=== PATIENT | female | born 1980 | race Caucasian/White ===

== ENCOUNTER → 2022-08-27 | Outpatient (CLI) | payer OTHER ==
[~2022-08-27] MED LIST: CYAN250010 PO; CYCL5TAB PO; DOCU-143 PO; HYDR-3729 PO; IBUP-1773 PO; MULT-39 PO; SIME80TA16 PO; ZINC50TA11 PO
--- NOTE | 2022-08-27 16:04 | Diagnostic Imaging Report ---
EXAMINATION: Left lower extremity MRI without contrast, 08/27/2022. TECHNIQUE: Multiplanar, multisequence [id number] MRI of the left lower extremity was accomplished. INDICATION: Chronic left hip pain. FINDINGS: There is focal T2 hyperintensity overlying the left greater trochanter. A small partial tear of the gluteus medius and minimus tendinous insertion at the greater trochanter is noted without retraction. The remaining visualized tendons including bilateral hamstrings tendon origins and the visualized iliopsoas musculature and tendons are intact. There is no acute osseous abnormality. Hips bilaterally are symmetric and intact. Visualized intrapelvic structures are unremarkable. Mild degenerative changes incidentally noted in the lumbar spine. Mild edema overlies the right greater trochanter but not as pronounced as on the left side. High signal along the superior labrum could be normal for patient with a tear difficult to exclude on this noncontrast examination. IMPRESSION: 1. Possible bilateral greater trochanteric bursitis, left worse than right, with a muscular strain in the left gluteus medius muscle also noted. A small partial tear of the distal gluteus minimus and medius tendons at the greater trochanter also noted without retraction. 2. High signal along the superior labrum could be normal for patient with a tear difficult to exclude on this noncontrast examination. Dictated by: Dictated on workstation # [id number]
== END ==
LOC: RAD 14:35
PROVIDERS: ATTEND Nurse Practitioner Family
DX: S76.012A Strain of muscle, fascia and tendon of left hip, initial encounter (principal); X58.XXXA Exposure to other specified factors, initial encounter
CPT/HCPCS: 73721

== ENCOUNTER → 2023-02-16 | Outpatient (CLI) | payer OTHER ==
--- NOTE | 2023-02-16 16:09 | Diagnostic Imaging Report ---
PROCEDURE: MRI lumbar spine. TECHNIQUE: Multiplanar, multisequence MRI of the lumbar spine was performed without contrast. INDICATION: Radiculopathy, pain EXAMINATION: Lumbar spine MRI without contrast 02/16/2023. COMPARISON: None FINDINGS: There is normal height and alignment of the vertebral bodies with the tip of the conus unremarkable in appearance and location. L1-L2: Bilateral facet hypertrophy noted with no central or neural foraminal stenosis. L2-L3: There is bilateral facet hypertrophy with no central or neural foraminal stenosis. L3-L4: There is disc desiccation with minimal broad-based bulging disc material. A central annular tear is noted with bilateral facet hypertrophy noted. No central stenosis. There is mild bilateral neural foraminal narrowing. L4-L5: Disc desiccation with a central disc protrusion noted. Bilateral facet hypertrophy noted. There is moderate central stenosis. Mild narrowing of the left lateral recess with likely encroachment upon the transiting left nerve root. There is moderate bilateral neural foraminal narrowing. There are endplate changes consistent with Modic type II disease disease L5-S1: There is a large left paracentral disc protrusion. This causes moderate to severe central stenosis with marked narrowing of the left lateral recess and likely encroaching upon the transiting left nerve root. There is mild bilateral facet hypertrophy. There is moderate left neural foraminal narrowing with the right neural foramen patent. Visualized intra-abdominal structures unremarkable with likely bilateral extrarenal pelves noted. IMPRESSION: 1. Multilevel degenerative findings as detailed above with a prominent left paracentral disc protrusion at L5-S1 abutting the transiting left nerve root and likely causing encroachment. Other findings as above. Dictated by: Dictated on workstation # [id number]
== END ==
LOC: RAD 13:33
PROVIDERS: ATTEND Family Medicine Sports Medicine
DX: M51.16 Intervertebral disc disorders with radiculopathy, lumbar region (principal); M48.061 Spinal stenosis, lumbar region without neurogenic claudication; M51.27 Other intervertebral disc displacement, lumbosacral region; M48.07 Spinal stenosis, lumbosacral region; M89.38 Hypertrophy of bone, other site
CPT/HCPCS: 72148